=== PATIENT | female | born 1955 | race Caucasian/White ===

== ENCOUNTER 2017-08-01 16:30 | Inpatient (IN) | payer MEDICARE, MEDICAID ==
[~2017-08-01] VITALS: Ht 168.9 cm; Wt 57.7 kg
[~2017-08-01 16:30] MED LIST: OLAN10VI4 IM; OLAN2.5T3 PO
[2017-08-01] MEDS ORDERED: traZODone 50mg tablet PO PRN (20:00)
[2017-08-01] MEDS: OLANZapine 2.5MG tablet PO SCH (20:00)
[2017-08-01] MEDS ORDERED: OLANZapine 5mg rapidly disint. tablet PO PRN (20:00)
[2017-08-02 00:22] VITALS: BP 134/75
[2017-08-02 08:00] VITALS: BP 120/63
[2017-08-02] MEDS: OLANZapine 2.5MG tablet PO SCH ×2 (08:00→08:21)
[2017-08-02] MEDS ORDERED: mag hydrox/Alum hydrox/simeth 30ml oral suspension PO PRN (08:20)
[2017-08-02] MEDS ORDERED: acetaminophen 325mg tablet PO PRN ×2 (08:20)
[2017-08-02] MEDS ORDERED: magnesium hydroxide 30ml (MOM) UD suspension PO PRN (08:20)
[2017-08-02 19:00] VITALS: BP 144/72
[2017-08-03 08:00] VITALS: BP 115/67
[2017-08-03] MEDS: OLANZapine 2.5MG tablet PO SCH ×2 (08:00→20:00)
[2017-08-03 08:12] LABS: CHOL/HDL RATIO 2.8 (0.00-4.99); CHOLESTEROL 201 MG/DL (0-200); HDL CHOLESTEROL 73 MG/DL (35-60); LDL CHOLESTEROL 112 MG/DL (50-100); TRIGLYCERIDES 35 MG/DL (20-135)
[2017-08-03 19:00] VITALS: BP 110/66
[2017-08-04 08:00] VITALS: BP 115/70
[2017-08-04] MEDS: OLANZapine 2.5MG tablet PO SCH ×2 (08:00→20:00)
[2017-08-04] MEDS: Protein Smoothie (high protein) 240ml (8oz) cup PO SCH ×2 (13:00→18:00)
[2017-08-04 20:00] VITALS: BP 114/67
[2017-08-05 08:00] VITALS: BP 118/63
[2017-08-05] MEDS: OLANZapine 2.5MG tablet PO SCH ×2 (08:00→20:00)
[2017-08-05] MEDS: Protein Smoothie (high protein) 240ml (8oz) cup PO SCH ×3 (08:00→18:00)
[2017-08-05 20:05] VITALS: BP 126/66
[2017-08-06 08:00] VITALS: BP 120/68
[2017-08-06] MEDS: Protein Smoothie (high protein) 240ml (8oz) cup PO SCH ×3 (08:00→17:43)
[2017-08-06] MEDS: OLANZapine 2.5MG tablet PO SCH ×2 (08:00→20:00)
[2017-08-06 20:28] VITALS: BP 116/68
[2017-08-07] MEDS: OLANZapine 2.5MG tablet PO SCH ×2 (08:00→20:00)
[2017-08-07] MEDS: Protein Smoothie (high protein) 240ml (8oz) cup PO SCH ×3 (08:00→18:55)
[2017-08-07 08:43] VITALS: BP 124/70
[2017-08-07 19:09] VITALS: BP 111/69
[2017-08-08] MEDS: Protein Smoothie (high protein) 240ml (8oz) cup PO SCH ×3 (08:00→18:00)
[2017-08-08] MEDS: OLANZapine 2.5MG tablet PO SCH ×2 (08:00→20:00)
[2017-08-08 08:01] VITALS: BP 113/68
[2017-08-08 20:00] VITALS: BP 112/62
[2017-08-09] MEDS: OLANZapine 2.5MG tablet PO SCH ×2 (08:00→20:00)
[2017-08-09] MEDS: Protein Smoothie (high protein) 240ml (8oz) cup PO SCH ×3 (08:00→18:00)
[2017-08-09 08:10] VITALS: BP 117/70
[2017-08-09 19:00] VITALS: BP 108/65
[2017-08-10 08:00] VITALS: BP 124/65
[2017-08-10] MEDS: Protein Smoothie (high protein) 240ml (8oz) cup PO SCH ×3 (08:00→18:00)
[2017-08-10] MEDS: ferrous sulfate 325mg tablet PO SCH (08:00)
[2017-08-10] MEDS: OLANZapine 2.5MG tablet PO SCH ×2 (08:00→20:00)
[2017-08-10 19:00] VITALS: BP 133/79
[2017-08-11 08:00] VITALS: BP 155/81
[2017-08-11] MEDS: Protein Smoothie (high protein) 240ml (8oz) cup PO SCH ×3 (08:00→18:00)
[2017-08-11] MEDS: OLANZapine 2.5MG tablet PO SCH ×2 (08:00→20:00)
[2017-08-11] MEDS: ferrous sulfate 325mg tablet PO SCH (09:55)
[2017-08-11 20:00] VITALS: BP 121/67
[2017-08-12 08:00] VITALS: BP 109/63
[2017-08-12] MEDS: OLANZapine 2.5MG tablet PO SCH ×2 (08:00→20:00)
[2017-08-12] MEDS: Protein Smoothie (high protein) 240ml (8oz) cup PO SCH ×3 (08:00→18:02)
[2017-08-12] MEDS: ferrous sulfate 325mg tablet PO SCH (10:00)
[2017-08-12 20:00] VITALS: BP 104/52
[2017-08-13 08:00] VITALS: BP 143/81
[2017-08-13] MEDS: Protein Smoothie (high protein) 240ml (8oz) cup PO SCH ×3 (08:00→18:00)
[2017-08-13] MEDS: ferrous sulfate 325mg tablet PO SCH (10:16)
[2017-08-13] MEDS: PALIPERIDONE 3 MG TAB.ER.24 PO SCH (17:13)
[2017-08-13 20:35] VITALS: BP 119/73
[2017-08-14 08:00] VITALS: BP 115/66
[2017-08-14] MEDS: PALIPERIDONE 3 MG TAB.ER.24 PO SCH (08:00)
[2017-08-14] MEDS: Protein Smoothie (high protein) 240ml (8oz) cup PO SCH ×3 (08:00→18:03)
[2017-08-14] MEDS: ferrous sulfate 325mg tablet PO SCH (08:55)
[2017-08-14 19:29] VITALS: BP 103/68
[2017-08-15] MEDS: ferrous sulfate 325mg tablet PO SCH (07:52)
[2017-08-15 08:00] VITALS: BP 136/73
[2017-08-15] MEDS: paliperidone 1.5mg ER tablet PO SCH (08:00)
[2017-08-15] MEDS: Protein Smoothie (high protein) 240ml (8oz) cup PO SCH ×3 (08:00→18:00)
[2017-08-15 19:00] VITALS: BP 91/45
[2017-08-16 07:38] VITALS: BP 128/64
[2017-08-16] MEDS: Protein Smoothie (high protein) 240ml (8oz) cup PO SCH ×3 (08:00→18:00)
[2017-08-16] MEDS: paliperidone 1.5mg ER tablet PO SCH (09:03)
[2017-08-16] MEDS: ferrous sulfate 325mg tablet PO SCH (09:03)
[2017-08-16 19:00] VITALS: BP 108/65
[2017-08-17 08:00] VITALS: BP 115/56
[2017-08-17] MEDS: Protein Smoothie (high protein) 240ml (8oz) cup PO SCH ×3 (08:00→18:57)
[2017-08-17] MEDS: ferrous sulfate 325mg tablet PO SCH (09:15)
[2017-08-17] MEDS: paliperidone 1.5mg ER tablet PO SCH (09:21)
[2017-08-17 19:00] VITALS: BP 125/78
[2017-08-18 08:00] VITALS: BP 125/67
[2017-08-18] MEDS: paliperidone 1.5mg ER tablet PO SCH (08:00)
[2017-08-18] MEDS: Protein Smoothie (high protein) 240ml (8oz) cup PO SCH ×3 (08:00→18:00)
[2017-08-18] MEDS: ferrous sulfate 325mg tablet PO SCH (08:15)
[2017-08-18 20:00] VITALS: BP 108/60
[2017-08-19] MEDS: paliperidone 1.5mg ER tablet PO SCH (08:00)
[2017-08-19] MEDS: Protein Smoothie (high protein) 240ml (8oz) cup PO SCH ×3 (08:00→18:00)
[2017-08-19] MEDS: ferrous sulfate 325mg tablet PO SCH (09:11)
[2017-08-19 14:13] VITALS: BP 155/71
[2017-08-19 20:00] VITALS: BP 146/72
[2017-08-20 08:00] VITALS: BP 121/68
[2017-08-20] MEDS: ferrous sulfate 325mg tablet PO SCH (09:32)
[2017-08-20] MEDS: paliperidone 1.5mg ER tablet PO SCH (09:34)
[2017-08-20] MEDS: Protein Smoothie (high protein) 240ml (8oz) cup PO SCH ×3 (09:35→18:00)
[2017-08-20 19:47] VITALS: BP 105/59
[2017-08-21 08:00] VITALS: BP 118/65
[2017-08-21] MEDS: Protein Smoothie (high protein) 240ml (8oz) cup PO SCH ×3 (08:00→18:00)
[2017-08-21] MEDS: paliperidone 1.5mg ER tablet PO SCH (08:00)
[2017-08-21] MEDS: ferrous sulfate 325mg tablet PO SCH (08:35)
[2017-08-21 20:10] VITALS: BP 116/67
[2017-08-22] MEDS: Protein Smoothie (high protein) 240ml (8oz) cup PO SCH ×3 (08:00→18:00)
[2017-08-22] MEDS: paliperidone 1.5mg ER tablet PO SCH (08:00)
[2017-08-22 08:21] VITALS: BP 120/64
[2017-08-22] MEDS: ferrous sulfate 325mg tablet PO SCH (08:49)
[2017-08-22 19:00] VITALS: BP 114/64
[2017-08-23 07:58] VITALS: BP 125/61
[2017-08-23] MEDS: paliperidone 1.5mg ER tablet PO SCH (08:00)
[2017-08-23] MEDS: Protein Smoothie (high protein) 240ml (8oz) cup PO SCH ×3 (08:00→13:07)
[2017-08-23] MEDS: ferrous sulfate 325mg tablet PO SCH (09:00)
[2017-08-23 10:35] LABS: BASOPHILS % (AUTO) 0.8 % (0-1); EOSINOPHILS # (AUTO) 0.1 X10'3 (0-0.9); EOSINOPHILS % (AUTO) 1.6 % (0-6); HEMATOCRIT 33.4 % (35.0-45.0); HEMOGLOBIN 10.9 g/dl (12.0-16.0); LYMPHOCYTES # (AUTO) 1.5 X10'3 (1.1-4.8); LYMPHOCYTES % (AUTO) 25.7 % (21-51); MEAN CORPUSCULAR HEMOGLOBIN 31.2 PG (27.0-31.0); MEAN CORPUSCULAR HGB CONC 32.8 % (33.0-36.5); MEAN CORPUSCULAR VOLUME 95.3 FL (78-98); MEAN PLATELET VOLUME 7.5 FL (7.4-10.4); MONOCYTES # (AUTO) 0.4 X10'3 (0-0.9); MONOCYTES % (AUTO) 6.9 % (2-12); NEUTROPHILS # (AUTO) 3.8 X10'3 (1.8-7.7); PLATELET COUNT 274 X10'3 (140-440); RED BLOOD COUNT 3.51 X10'6 (4.20-5.60); RED CELL DISTRIBUTION WIDTH 15.2 % (11.5-14.5); WHITE BLOOD COUNT 5.8 X10'3 (4.5-11.0)
[2017-08-23 10:49] LABS: ALANINE AMINOTRANSFERASE 26 U/L (12-78); ALBUMIN 3.4 G/DL (3.4-5.0); ALBUMIN/GLOBULIN RATIO 1.1 (1.1-1.5); ALKALINE PHOSPHATASE 54 IU/L (46-116); ANION GAP 4 (8-16); ASPARTATE AMINO TRANSFERASE 15 U/L (10-37); BILIRUBIN,TOTAL 0.3 MG/DL (0.1-1.0); BLOOD UREA NITROGEN 22 MG/DL (7-18); BUN/CREATININE RATIO 34.9 (6.6-38.0); CALCIUM 9.2 MG/DL (8.5-10.1); CHLORIDE 110 MMOL/L (99-107); CREATININE 0.63 MG/DL (0.40-0.90); GLUCOSE 97 MG/DL (70-104); MAGNESIUM 1.9 MG/DL (1.5-2.4); POTASSIUM 3.9 MMOL/L (3.5-5.1); SODIUM 145 MMOL/L (135-145); TOTAL CARBON DIOXIDE 30.7 MMOL/L (24-32); TOTAL PROTEIN 6.5 G/DL (6.4-8.2); eGFR > 90 ML/MIN
[2017-08-23 17:32] LABS: CLARITY,URINE SLIGHTLY CLOUDY (Clear); COLOR,URINE YELLOW (Yellow); GLUCOSE, URINE NEGATIVE (Neg); KETONES,URINE NEGATIVE (Neg); LEUKOCYTE ESTERASE ,URINE TRACE (Neg); NITRITES, URINE NEGATIVE (Neg); OCCULT BLOOD,URINE MODERATE (Neg); PROTEIN,URINE NEGATIVE (Neg); UA COLLECTION TYPE CLN CATCH MIDSTREAM; UROBILINOGEN,URINE 0.2 E.U/dL (0.2-1.0)
[2017-08-23 17:39] LABS: AMORPHOUS PHOSPHATES 1+; BACTERIA,URINE FEW /HPF (Neg); SQUAMOUS EPITHELIAL CELL,UR MODERATE /LPF (FEW)
[2017-08-23 19:00] VITALS: BP 132/66
[2017-08-24 08:00] VITALS: BP 119/69
[2017-08-24] MEDS: ferrous sulfate 325mg tablet PO SCH (08:00)
[2017-08-24] MEDS: Protein Smoothie (high protein) 240ml (8oz) cup PO SCH ×3 (08:00→18:00)
[2017-08-24] MEDS: paliperidone 1.5mg ER tablet PO SCH (08:00)
[2017-08-24 19:00] VITALS: BP 114/63
[2017-08-25 08:00] VITALS: BP 141/74
[2017-08-25] MEDS: ferrous sulfate 325mg tablet PO SCH (08:00)
[2017-08-25] MEDS: Protein Smoothie (high protein) 240ml (8oz) cup PO SCH ×3 (08:00→18:00)
[2017-08-25] MEDS: paliperidone 1.5mg ER tablet PO SCH (08:00)
[2017-08-25 20:00] VITALS: BP 112/69
[2017-08-26 08:00] VITALS: BP 119/70
[2017-08-26] MEDS: ferrous sulfate 325mg tablet PO SCH (08:00)
[2017-08-26] MEDS: Protein Smoothie (high protein) 240ml (8oz) cup PO SCH ×3 (08:00→18:49)
[2017-08-26] MEDS: paliperidone 1.5mg ER tablet PO SCH (08:00)
[2017-08-26 19:36] VITALS: BP 125/76
[2017-08-27 08:00] VITALS: BP 115/62
[2017-08-27] MEDS: paliperidone 1.5mg ER tablet PO SCH (08:00)
[2017-08-27] MEDS: Protein Smoothie (high protein) 240ml (8oz) cup PO SCH ×3 (08:00→18:00)
[2017-08-27] MEDS: ferrous sulfate 325mg tablet PO SCH (12:41)
[2017-08-27 19:25] VITALS: BP 131/61
[2017-08-28 07:51] VITALS: BP 152/68
[2017-08-28] MEDS: paliperidone 1.5mg ER tablet PO SCH (08:00)
[2017-08-28] MEDS: Protein Smoothie (high protein) 240ml (8oz) cup PO SCH ×2 (08:00→13:00)
[2017-08-28] MEDS: ferrous sulfate 325mg tablet PO SCH (09:43)
[2017-08-28 12:40] LABS: COLOR,URINE YELLOW (Yellow); GLUCOSE, URINE NEGATIVE (Neg); KETONES,URINE NEGATIVE (Neg); LEUKOCYTE ESTERASE ,URINE TRACE (Neg); NITRITES, URINE NEGATIVE (Neg); OCCULT BLOOD,URINE SMALL (Neg); PROTEIN,URINE NEGATIVE (Neg); UROBILINOGEN,URINE 0.2 E.U/dL (0.2-1.0)
[2017-08-28 12:48] LABS: UA COLLECTION TYPE CLN CATCH MIDSTREAM
[2017-08-28 12:49] LABS: CLARITY,URINE SLIGHTLY CLOUDY (Clear)
[2017-08-28 12:52] LABS: BACTERIA,URINE FEW /HPF (Neg); HYALINE CASTS 0-3 /LPF (NEGATIVE); MUCUS STRANDS MANY /LPF (Neg); SQUAMOUS EPITHELIAL CELL,UR MODERATE /LPF (FEW)
[2017-08-28] MEDS ORDERED: FER325T PO (16:58)
[2017-08-28] MEDS ORDERED: PALI1.5T2 PO (16:58)
== END 2017-08-28 17:33 | DRG 885 ==
LOC: ADULT MH 16:30
PROVIDERS: ADMIT Psychiatry & Neurology Psychiatry; ATTEND Psychiatry & Neurology Psychiatry
DX: F29 Unspecified psychosis not due to a substance or known physiological condition (principal); F20.9 Schizophrenia, unspecified; F32.9 Major depressive disorder, single episode, unspecified; F41.0 Panic disorder [episodic paroxysmal anxiety]; R62.7 Adult failure to thrive; D64.9 Anemia, unspecified; Z53.20 Procedure and treatment not carried out because of patient's decision for unspecified reasons; Z88.8 Allergy status to other drugs, medicaments and biological substances; Z79.899 Other long term (current) drug therapy; Z83.3 Family history of diabetes mellitus; Z80.8 Family history of malignant neoplasm of other organs or systems
CPT/HCPCS: 36415; 80053; 80061; 81001; 83036; 83735; 85025; 87070; 87088; 99285

== ENCOUNTER 2019-04-27 17:50 | Emergency (ER) | payer MEDICARE, MEDICAID ==
[~2019-04-27] VITALS: Ht 167.6 cm; Wt 83.0 kg
[~2019-04-27 17:50] MED LIST changes: +FER325T PO; -OLAN10VI4 IM; -OLAN2.5T3 PO; +PALI1.5T2 PO
[2019-04-27 18:55] VITALS: BP 132/72
[2019-04-27 19:06] LABS: URINE HCG NEGATIVE (NEG)
[2019-04-27 19:16] LABS: CLARITY,URINE TURBID (Clear); COLOR,URINE YELLOW (Yellow); GLUCOSE, URINE NEGATIVE (Neg); KETONES,URINE TRACE mg/dl (Neg); LEUKOCYTE ESTERASE ,URINE MODERATE (Neg); NITRITES, URINE NEGATIVE (Neg); OCCULT BLOOD,URINE SMALL (Neg); PROTEIN,URINE >=300 mg/dl (Neg); UROBILINOGEN,URINE 0.2 E.U/dL (0.2-1.0)
[2019-04-27 19:25] LABS: UA COLLECTION TYPE CLN CATCH MIDSTREAM
[2019-04-27 19:32] LABS: WBC,URINE TNTC /HPF (0-4)
[2019-04-27 19:33] LABS: BACTERIA,URINE 4+ /HPF (Neg); CAL OXALATE CRYSTALS 1+ /HPF (NEGATIVE); SQUAMOUS EPITHELIAL CELL,UR FEW /LPF (FEW); WBC CLUMPS,URINE FEW /HPF (NEGATIVE)
[2019-04-27] MEDS ORDERED: CEPH250T PO (20:02)
--- NOTE | 2019-05-01 18:58 | NUR ---
ATTEMPTED TO CALL PT REGARDING CULTURE RESULTS NO ANSWER AND PT VOICEMAIL FULL, RECOMMENDATION IS TO CALL IF SYMPTOMS NOT IMPROVED CHANGE ABX TO CIPRO 500 MG PO BID X [address] MCMILLAN.
--- NOTE | 2019-05-02 18:00 | NUR ---
Attempted to call pt., voice mail remains full. Will try again tomorrow and if no response will send letter.
== END 2019-04-27 20:25 | disposition home or self-care (01) ==
LOC: ER 17:51
DX: N39.0 Urinary tract infection, site not specified (principal); Z88.8 Allergy status to other drugs, medicaments and biological substances; Z79.899 Other long term (current) drug therapy
CPT/HCPCS: 81001; 81025; 87077; 87088; 87186; 99283